=== PATIENT | female | born 1950 | race Caucasian/White ===

== ENCOUNTER 2017-02-28 12:38 | Day surgery (SDC) | payer MEDICARE, MEDICAID ==
[~2017-02-28 12:38] MED LIST: DIPHENHYDRAMINE HCL 50 MG/ML VIAL ONE; EPINEPHRINE INJ 1 MG/10 ML DISP.SYRIN ONE; FLUMAZENIL INJ 0.5 MG/5 ML VIAL ONE; GLUCAGON,HUMAN RECOMB 1 MG INJ ONE; NALOXONE HCL INJ/PF 0.4 MG/1 ML SDV ONE; ONDANSETRON HCL INJ/PF 4 MG/2 ML SDV ONE
[2017-02-28] MEDS: MIDAZOLAM 2 MG/2 ML INJ ONE ×3 (13:28→13:40)
[2017-02-28] MEDS: FENTANYL CITRATE INJ/PF 100 MCG/2 ML AMPUL ONE ×2 (13:30→13:36)
--- NOTE | 2017-02-28 13:58 | Operative Report ---
Operative Report DATE OF SURGERY: 02/28/17 Operative Report: The risks benefits and alternatives of the procedure explained to the patient in detail and informed consent is obtained.A GIF Olympus video scope was inserted into the patient's mouth and hypopharynx, the esophagus is identified intubated and insufflated, the scope was then advanced through the esophagus stomach and duodenum, retroflexion maneuver is done, the esophagus stomach and first and second portions of the duodenum examined PREOPERATIVE DIAGNOSIS: Nausea and vomiting POSTOPERATIVE DIAGNOSIS: Esophageal ulcer. Esophagitis. Gastritis status post biopsy rule out Helicobacter pylori OPERATION: EGD with biopsy SURGEON: PURVI PADILLA ANESTHESIA: Moderate Sedation - 4 mg of Versed, 125 mcg of fentanyl. Conscious sedation monitoring time 30 minutes. TISSUE REMOVED OR ALTERED: Gastric mucosal specimens obtained to rule out Helicobacter pylori COMPLICATIONS: None. ESTIMATED BLOOD LOSS: None. INTRAOPERATIVE FINDINGS: As described above. PROCEDURE: Patient tolerated the procedure well. No immediate postprocedure complications are noted. Patient discharged in good condition. Discharge date 02/28/2017. Discharge diet: Regular. Discharge activity: Regular. 2-3 week follow-up to discuss findings. Follow-up EGD in 6 weeks to document healing. We will need to stop a PPI. Follow-up on biopsy. Patient is instructed to call the office or proceed to the emergency room should there be any further problems or questions.
[2017-02-28 15:00] VITALS: BP 131/86
== END 2017-02-28 14:55 | disposition home or self-care (01) ==
LOC: END 12:38
PROVIDERS: ATTEND Internal Medicine Gastroenterology
PROC: 0DB68ZX Excision of Stomach, Via Natural or Artificial Opening Endoscopic, Diagnostic (ICD-10-PCS; principal; 2017-02-28 13:00)
DX: R11.2 Nausea with vomiting, unspecified (principal); K22.10 Ulcer of esophagus without bleeding; K58.9 Irritable bowel syndrome, unspecified; I10 Essential (primary) hypertension; Z79.899 Other long term (current) drug therapy; Z88.5 Allergy status to narcotic agent; Z88.8 Allergy status to other drugs, medicaments and biological substances
CPT/HCPCS: 43239; 88305 ×2; J2250; J3010; J0171; J1200; J1610; J2310; J2405; J3490

== ENCOUNTER 2017-03-24 07:25 | Day surgery (SDC) | payer MEDICARE, MEDICAID ==
[2017-03-24] MEDS ORDERED: PROPOFOL INJ 200 MG/20 ML VIAL IV ONE (08:48)
[2017-03-24] MEDS ORDERED: PROMETHAZINE HCL INJ 25 MG/1 ML VIAL IV PRN (10:11)
[2017-03-24] MEDS ORDERED: DEXTROSE 5%-1/2 NORMAL SALINE 1,000 ML IV PRN (10:32)
[2017-03-24] MEDS ORDERED: 1/2 NORMAL SALINE 1,000 ML IV PRN (10:33)
[2017-03-24] MEDS ORDERED: LIDOCAINE 0.5% INJ-PF (5 MG/ML) 50 ML SDV SUBCUT PRN (10:34)
--- NOTE | 2017-03-24 11:24 | Operative Report ---
Operative Report DATE OF SURGERY: 03/24/17 Operative Report: The risks, benefits and alternatives of the procedure including risks of bleeding, perforation requiring surgery are explained to the patient detail and informed consent is obtained. The patient was taken back to the operating room and placed in the left, lateral decubital position. Timeout was called. Propofol medications administered. A rectal examination was done which did not reveal any masses, tears or fissures. An Olympus videoscope was inserted into the patient's rectum. It is carefully advanced all the way to the cecum. The cecum was identified by the usual anatomical landmarks of the ileocecal valve as well as the appendiceal office. Photodocumentation was obtained. Prep is good. Scope was then sequentially pulled back via the various segments of the colon including the ascending colon, hepatic flexure, transverse colon, splenic flexure, descending colon finding to the rectosigmoid portions of the colon. Retroflexion maneuvers performed. The risks benefits and alternatives of the procedure explained to the patient in detail and informed consent is obtained.A GIF Olympus video scope was inserted into the patient's mouth and hypopharynx, the esophagus is identified intubated and insufflated, the scope was then advanced through the esophagus stomach and duodenum, retroflexion maneuver is done, the esophagus stomach and first and second portions of the duodenum examined PREOPERATIVE DIAGNOSIS: Robison's esophagus. Chronic diarrhea rule out collagenous colitis POSTOPERATIVE DIAGNOSIS: Mild inflammation in the right side of the colon status post biopsy rule out lymphocytic, collagenous, microcytic colitis. Robison's esophagus which is ablated OPERATION: Colonoscopy with biopsy. EGD with ablation SURGEON: PURVI PADILLA ANESTHESIA: LMAC TISSUE REMOVED OR ALTERED: As noted above. COMPLICATIONS: None. ESTIMATED BLOOD LOSS: None. INTRAOPERATIVE FINDINGS: No masses, AVMs, diverticulosis noted. PROCEDURE: Patient tolerated the procedure well. No immediate postprocedure complications are noted. Patient discharged in good condition. Discharge date 03/24/2017. Discharge diet: Regular. Discharge activity: Regular. 2-3 week follow-up to discuss findings. We will wait on biopsies. Patient is instructed to call the office or proceed to the emergency room should there be any further problems or questions. If biopsies are negative consider gallbladder workup.
[2017-03-24 11:54] VITALS: BP 167/93
== END 2017-03-24 11:35 | disposition home or self-care (01) ==
LOC: OROUT 07:25
PROVIDERS: ATTEND Internal Medicine Gastroenterology
PROC: 0D558ZZ Destruction of Esophagus, Via Natural or Artificial Opening Endoscopic (ICD-10-PCS; principal; 2017-03-24 09:15)
PROC: 0DBF8ZX Excision of Right Large Intestine, Via Natural or Artificial Opening Endoscopic, Diagnostic (ICD-10-PCS; 2017-03-24 09:15)
DX: K22.719 Barrett's esophagus with dysplasia, unspecified (principal); K52.9 Noninfective gastroenteritis and colitis, unspecified; I10 Essential (primary) hypertension; F41.9 Anxiety disorder, unspecified; F32.9 Major depressive disorder, single episode, unspecified; Z88.5 Allergy status to narcotic agent
CPT/HCPCS: 43270; 45380; 88305 ×2; J2704; 740

== ENCOUNTER 2018-02-02 07:31 | Day surgery (SDC) | payer MEDICARE, MEDICAID ==
[2018-02-02] MEDS: MIDAZOLAM 2 MG/2 ML INJ ONE ×4 (08:12→08:24)
[2018-02-02] MEDS: FENTANYL CITRATE INJ/PF 100 MCG/2 ML AMPUL ONE ×4 (08:14→08:26)
--- NOTE | 2018-02-02 08:36 | Operative Report ---
Operative Report DATE OF SURGERY: 02/02/18 Operative Report: The risks benefits and alternatives of the procedure explained to the patient in detail and informed consent is obtained.A GIF Olympus video scope was inserted into the patient's mouth and hypopharynx ,the esophagus is identified intubated and insufflated, the scope was then advanced through the esophagus stomach and duodenum, retroflexion maneuver is done, the esophagus stomach and first and second portions of the duodenum examined PREOPERATIVE DIAGNOSIS: Nausea and vomiting, dyspepsia POSTOPERATIVE DIAGNOSIS: Robison's esophagus, small islands treated with ablative therapy. Gastritis status post biopsy rule out Helicobacter pylori. Hiatal hernia OPERATION: EGD with ablation. EGD with biopsy SURGEON: PURVI PADILLA ANESTHESIA: Moderate Sedation - 6 mg of Versed, 100 mcg of fentanyl. Conscious sedation monitoring time 30 minutes. TISSUE REMOVED OR ALTERED: As noted above. COMPLICATIONS: None. ESTIMATED BLOOD LOSS: None. INTRAOPERATIVE FINDINGS: As noted above. PROCEDURE: Patient tolerated procedure well. No immediate postprocedure complications are noted. Patient discharged in good condition. Discharge date 02/02/2018. Discharge diet: Regular. Discharge activity: Regular. 2-3 week follow-up to discuss findings. Patient is instructed call the office or proceed to the emergency room should there be any further problems or questions. We will wait on the pathology.
[2018-02-02 09:41] VITALS: BP 1144/95
== END 2018-02-02 09:50 | disposition home or self-care (01) ==
LOC: END 07:31
PROVIDERS: ATTEND Internal Medicine Gastroenterology
DX: K22.70 Barrett's esophagus without dysplasia (principal); K29.50 Unspecified chronic gastritis without bleeding; I10 Essential (primary) hypertension; Z86.010 Personal history of colon polyps; Z79.899 Other long term (current) drug therapy; Z88.5 Allergy status to narcotic agent
CPT/HCPCS: 43270; 43239; 88305 ×2; J2250; J3010; J0171; J1200; J1610; J2310; J2405; J3490